=== PATIENT | female | born 2000 | race Caucasian/White ===

== ENCOUNTER 2021-02-27 16:16 | Inpatient (IN) | payer BC ==
[2021-02-27] MEDS ORDERED: Ondansetron PF 4 MG/2 ML Vial IVP PRN (18:00)
[2021-02-27 18:28] VITALS: BMI 18.3
[2021-02-27 18:32] LABS: Hemoglobin 10.9 g/dL (12.0-15.5); Mean Corpuscular Volume 88.4 fl (81.6-98.3); Mean Platelet Volume 8.7 fl (7.4-10.4); Platelet Count 348 10x3/uL (150-450); RBC Distribution Width 11.9 % (11.5-14.5); Red Blood Cell (RBC) Count 3.63 10x6/uL (3.90-5.03); White Blood Cell (WBC) Count 5.9 10x3/uL (3.5-10.5)
[2021-02-27 18:45] LABS: ALT (SGPT) 12 U/L (8-55); AST (SGOT) 10 U/L (5-30); Albumin 3.3 g/dL (3.5-5.0); Alkaline Phosphatase 45 U/L (40-100); Anion Gap 13 mmol/L (10-20); BUN (Urea Nitrogen) 4 mg/dL (8.4-21.0); Bilirubin, Total 0.6 mg/dL (0.2-1.2); Calc. Creatinine Clearance 93 mL/min (70-130); Calcium 8.8 mg/dL (7.8-10.44); Carbon Dioxide 25 mmol/L (22-29); Chloride 104 mmol/L (98-107); Globulin 3.6 g/dL (2.4-3.5); Glucose 84 mg/dL (70-105); Potassium 3.8 mmol/L (3.5-5.1); Protein, Total 6.9 g/dL (6.0-8.3); Sodium 138 mmol/L (136-145)
[2021-02-27 18:59] LABS: Eosinophils 1 % (0-10); Lymphocytes 66 % (28-48); Monocytes 11 % (0-4); Neutrophil 17 % (31-61); Reactive Lymphocytes 5 % (0-10)
[2021-02-27 19:00] LABS: Platelet Morphology Comment Appears Adequate; Toxic Granulation SLIGHT
[2021-02-27 19:01] LABS: MDiff Complete? YES
[2021-02-27 19:25] LABS: SARS-CoV-2 IgG Spike Ab Interp Reactive (NonReactive); SARS-CoV-2 IgG Spike Conc/Indx 5875.7 AU/mL (0.00-50.0)
[2021-02-27] MEDS ORDERED: Piperacillin/Tazobactam 3.375 GM in Sodium Chloride 0.9% 100 ML IVPB SCH ×2 (20:00→21:15)
[2021-02-27 20:58] LABS: SARS-CoV-2 NAA Rapid Test Not Detected (NotDetected)
[2021-02-27] MEDS: Sodium Chloride 0.9% 1,000 ML IV SCH (21:46)
[2021-02-28] MEDS: Azithromycin 500 MG in Sodium Chloride 0.9% 250 ML 250 ML IVPB SCH ×2 (00:45→23:30)
[2021-02-28] MEDS: cefTRIAXone\\ROCEPHIN 1 GM in Sodium Chloride 0.9% 100 ML IVPB SCH (00:46)
[2021-02-28] MEDS ORDERED: Piperacillin/Tazobactam 3.375 GM in Sodium Chloride 0.9% 100 ML IVPB SCH (01:00)
[2021-02-28] MEDS: Acetaminophen 325 MG TAB PO PRN (04:46)
[2021-02-28] MEDS ORDERED: Vancomycin HCl 500 MG in Sodium Chloride 0.9% 100 ML IVPB SCH (05:00)
[2021-02-28] MEDS ORDERED: FLU VACC QS2021-22(6MOS UP)/PF 60 MCG/0.5 ML SYRINGE IM ONE (11:45)
[2021-02-28] MEDS: Enoxaparin Sodium 40 MG/0.4 ML SYRINGE SC SCH (13:00)
[2021-02-28] MEDS ORDERED: Guaifenesin DM 100-10/5 ML UDCUP PO PRN (14:19)
[2021-02-28] MEDS: Lorazepam 2 MG/ML VIAL SLOW IVP PRN (17:18)
[2021-02-28] MEDS: Sodium Chloride 0.9% 1,000 ML IV SCH (17:36)
[2021-03-01 00:21] LABS: Legionella Urinary Ag Negative (Negative)
[2021-03-01 00:22] LABS: Strep pneumo Urine Ag NEGATIVE (NEGATIVE)
[2021-03-01] MEDS: Acetaminophen 325 MG TAB PO PRN ×2 (00:26→09:46)
[2021-03-01] MEDS: cefTRIAXone\\ROCEPHIN 1 GM in Sodium Chloride 0.9% 100 ML IVPB SCH (01:05)
[2021-03-01] MEDS: Sodium Chloride 0.9% 1,000 ML IV SCH ×2 (05:38→11:35)
[2021-03-01 06:04] LABS: ALT (SGPT) 8 U/L (8-55); AST (SGOT) 14 U/L (5-30); Alkaline Phosphatase 49 U/L (40-100); Anion Gap 10 mmol/L (10-20); BUN (Urea Nitrogen) Less than 4 mg/dL (8.4-21.0); Bilirubin, Total 0.2 mg/dL (0.2-1.2); Calc. Creatinine Clearance 101 mL/min (70-130); Calcium 8.3 mg/dL (7.8-10.44); Carbon Dioxide 24 mmol/L (22-29); Chloride 109 mmol/L (98-107); Glucose 104 mg/dL (70-105); Potassium 3.4 mmol/L (3.5-5.1); Sodium 140 mmol/L (136-145)
[2021-03-01 06:23] LABS: Band 13 % (5-11); Eosinophils 8 % (0-10); Hemoglobin 10.6 g/dL (12.0-15.5); Lymphocytes 34 % (28-48); MDiff Complete? YES; Mean Corpuscular Hemoglobin 29.6 pg (27.0-33.0); Mean Corpuscular Volume 87.2 fl (81.6-98.3); Mean Platelet Volume 8.9 fl (7.4-10.4); Metamyelocyte 7 % (0-0); Monocytes 10 % (0-4); Myelocyte 5 % (0-0); Neutrophil 13 % (31-61); Platelet Count 392 10x3/uL (150-450); Platelet Morphology Comment Appears Adequate; RBC Distribution Width 12.2 % (11.5-14.5); RBC Morphology Normal; Reactive Lymphocytes 9 % (0-10); Red Blood Cell (RBC) Count 3.58 10x6/uL (3.90-5.03); Reflex for Review?? YES; Toxic Granulation SLIGHT; White Blood Cell (WBC) Count 10.9 10x3/uL (3.5-10.5)
[2021-03-01] MEDS: Enoxaparin Sodium 40 MG/0.4 ML SYRINGE SC SCH (11:08)
[2021-03-01] MEDS ORDERED: predniSONE 20 MG TAB PO SCH (12:00)
[2021-03-01 13:36] LABS: HIV (1/2) Antibody/Antigen Non-Reactive (NonReactive); HIV 1/2 INDEX 0.11 S/CO (<1.00)
[2021-03-01] MEDS: Lorazepam 2 MG/ML VIAL SLOW IVP PRN (14:07)
[2021-03-01] MEDS: Azithromycin 500 MG in Sodium Chloride 0.9% 250 ML 250 ML IVPB SCH (22:20)
[2021-03-02] MEDS: cefTRIAXone\\ROCEPHIN 1 GM in Sodium Chloride 0.9% 100 ML IVPB SCH (00:28)
[2021-03-02] MEDS: Sodium Chloride 0.9% 1,000 ML IV SCH (04:14)
[2021-03-02 04:58] LABS: ALT (SGPT) 9 U/L (8-55); AST (SGOT) 20 U/L (5-30); Albumin 3.3 g/dL (3.5-5.0); Alkaline Phosphatase 51 U/L (40-100); Anion Gap 11 mmol/L (10-20); Bilirubin, Total 0.2 mg/dL (0.2-1.2); Calc. Creatinine Clearance 98 mL/min (70-130); Carbon Dioxide 22 mmol/L (22-29); Chloride 111 mmol/L (98-107); Globulin 3.5 g/dL (2.4-3.5); Glucose 133 mg/dL (70-105); Protein, Total 6.8 g/dL (6.0-8.3); Sodium 140 mmol/L (136-145)
[2021-03-02 05:26] LABS: BUN (Urea Nitrogen) 5 mg/dL (8.4-21.0)
[2021-03-02 05:30] LABS: Band 17 % (5-11); Hemoglobin 11.3 g/dL (12.0-15.5); Lymphocytes 23 % (28-48); MDiff Complete? YES; Mean Corpuscular HGB CONC 34.2 g/dL (32.0-36.0); Mean Corpuscular Hemoglobin 29.7 pg (27.0-33.0); Mean Corpuscular Volume 86.8 fl (81.6-98.3); Mean Platelet Volume 8.9 fl (7.4-10.4); Metamyelocyte 5 % (0-0); Monocytes 10 % (0-4); Myelocyte 1 % (0-0); Neutrophil 43 % (31-61); Platelet Count 463 10x3/uL (150-450); Platelet Morphology Comment Appears Adequate; RBC Distribution Width 12.2 % (11.5-14.5); RBC Morphology Normal; Reactive Lymphocytes 1 % (0-10); Toxic Granulation SLIGHT; White Blood Cell (WBC) Count 13.2 10x3/uL (3.5-10.5)
[2021-03-02] MEDS ORDERED: predniSONE 20 MG TAB PO SCH (08:00)
[2021-03-02] MEDS: Enoxaparin Sodium 40 MG/0.4 ML SYRINGE SC SCH (08:56)
[2021-03-02 12:04] VITALS: BP 128/77; TEMP 97.4
[2021-03-03 08:17] LABS: HSV 1 DNA, Oropharynx Negative (Negative); HSV 2 DNA, Oropharynx Negative (Negative)
[2021-03-03 10:41] LABS: EBV VCA IgM 46.9 U/mL (0.0-35.9); Nuclear AG IgG (EBNA) AB <18.0 U/mL (0.0-17.9)
== END 2021-03-02 12:30 | disposition home or self-care (01) | DRG 871 ==
LOC: CSHTELE 17:53
PROVIDERS: ADMIT Internal Medicine; ATTEND Internal Medicine
DX: A41.9 Sepsis, unspecified organism (principal); J18.9 Pneumonia, unspecified organism; J96.01 Acute respiratory failure with hypoxia; J90 Pleural effusion, not elsewhere classified; J02.9 Acute pharyngitis, unspecified; B27.90 Infectious mononucleosis, unspecified without complication; Z20.822 Contact with and (suspected) exposure to COVID-19; Z79.899 Other long term (current) drug therapy
CPT/HCPCS: 0241U; 36415; 71046; 80053; 84145; 85007; 85027; 85060; 86140; 86645; 86664; 86665; 86769; 87389; 87449; 87529; 87633; 87798; 87899; 93306; 94760; J0456; J0696; J1650; J2060; J2405; J2543; J3490; J7050; J7512

== ENCOUNTER 2025-02-07 09:30 | Emergency (ER) | payer BC ==
[2025-02-07] MEDS ORDERED: Ketorolac Tromethamine 30 MG (1 mL) VIAL ONE (10:45)
[2025-02-07 11:10] LABS: #Basophils 0.06 10x3/uL (0.0-0.2); #Eosinophils 0.18 10x3/uL (0.0-0.5); #Monocytes 0.55 10x3/uL (0.0-1.1); #Neutrophils 6.60 10x3/uL (1.5-8.4); %Basophils 0.5 % (0.0-2.0); %Eosinophils 1.6 % (0.0-6.0); %Lymphocytes 32.5 % (18.0-47.0); %Monocytes 5.0 % (0.0-10.0); %Neutrophils 59.9 % (40.0-75.0); Hematocrit 43.9 % (34.9-44.5); Hemoglobin 15.5 g/dL (12.0-15.5); Mean Corpuscular Hemoglobin 31.6 pg (27.0-33.0); Mean Corpuscular Volume 89.6 fL (81.6-98.3); Platelet Count 346 10x3/uL (150-450); Red Blood Cell (RBC) Count 4.90 10x6/uL (3.90-5.03); White Blood Cell (WBC) Count 11.03 10x3/uL (3.5-10.5)
[2025-02-07 11:15] LABS: BHCG - Serum Negative (NEGATIVE); Pregs Control Background? CLEAR/WHITE (CLR/WHITE); Pregs Control Bar Appear? YES (CONTROL BAR)
[2025-02-07 11:24] LABS: ALT (SGPT) 17 U/L (Less than 34); AST (SGOT) 27 U/L (11-34); Albumin 4.9 g/dL (3.1-4.5); Alkaline Phosphatase 37 U/L (40-110); Anion Gap 17 mmol/L (10-20); BUN (Urea Nitrogen) 9 mg/dL (7.0-18.7); Bilirubin, Total 0.5 mg/dL (0.3-1.2); Calc. Creatinine Clearance 0 mL/min (70-130); Calcium 10.1 mg/dL (7.8-10.44); Carbon Dioxide 19 mmol/L (22-29); Chloride 110 mmol/L (98-107); Globulin 3.1 g/dL (2.4-3.5); Glucose 111 mg/dL (70-105); Potassium 3.7 mmol/L (3.5-5.1); Sodium 142 mmol/L (136-145)
[2025-02-07 11:54] LABS: Glucose, Urine (Dipstick) Normal (Negative); Leukocyte 25 (Negative); Protein, Urine (Dipstick) 30 mg/dl (Neg-Trace); Specific Gravity, Urine 1.025 (1.005-1.030)
[2025-02-07 12:14] LABS: RBC/HPF Greater than 50 HPF (0-3)
[2025-02-07 12:15] LABS: Bacteria/HPF 1+ HPF (None Seen); CAUTI Indications for Culture Pelvic or flank pain; WBC/HPF 0-3 HPF (0-3)
[2025-02-07 12:16] LABS: Urine Culture Reflex No No
== END 2025-02-07 12:56 | disposition home or self-care (01) ==
LOC: CSHERS 09:30
DX: K52.9 Noninfective gastroenteritis and colitis, unspecified (principal); B34.9 Viral infection, unspecified; N94.6 Dysmenorrhea, unspecified; F17.290 Nicotine dependence, other tobacco product, uncomplicated
CPT/HCPCS: 80053; 81001; 84703; 85025; 93005; 96361; 96374; 96375; J1885